=== PATIENT | female | born 1955 | race Caucasian/White ===

== ENCOUNTER 2017-10-19 14:10 | Inpatient (IN) | payer MEDICAID, OTHER ==
--- NOTE | 2017-10-19 16:03 | CP.PCM.HP ---
<James Meier - Last Filed: 10/19/17 15:59> History of Present Illness - History of Present Illness History of Present Illness: H&P for Dr. Baptiste This is a 62F with a PMH of [place] Syndrome and Dextrocardia, she presented today to the ED due to lower adominal pain and pelvic pain for the past 3 weeks. She reports that she has known that she has groin hernias for years however aside from beeing unsighly they have never caused her any issues however about three weeks ago the bulges became fixed and painful. She reports that during this time she has had no changes in bowel function, no blood per rectum no nausea or vomiting. In the ED the ED physician was able to rediuce the left sided hernia however he was unable to reduice the right sided hernia. She denies any fevers chill or chest pain at this time. She does however complay of left lower extremity numbness. PMH: [place] syndrome, dextrocardia, neuropathy PSH: Spinal surgery, Free Flap grafts ALL: NKDA Social: Denies Vices Present on Admission - Present on Admission Any Indicators Present on Admission: No Review of Systems - Review of Systems All systems: reviewed and no additional remarkable complaints except - Constitutional Constitutional: absent: Anorexia, Chills - EENT Eyes: absent: Blurred Vision, Change in Vision Ears: absent: Ear Discharge, Ear Pain - Cardiovascular Cardiovascular: absent: Chest Pain, Dyspnea - Respiratory Respiratory: absent: Dyspnea, Dyspnea on Exertion - Gastrointestinal Gastrointestinal: Abdominal Pain. absent: Bloating, Coffee Ground Emesis, Diarrhea, Melena, Nausea, Vomiting - Genitourinary Genitourinary: absent: Difficulty Urinating, Dysuria - Integumentary Integumentary: absent: Bleeding Lesions, New Lesions Past Patient History - Past Social History Smoking Status: Light Smoker < 10 Cigarettes Daily - CARDIAC Hx Cardiac Disorders: No Hx Hypertension: No - PULMONARY Hx Tuberculosis: No - NEUROLOGICAL HX Cerebrovascular Accident: No Hx Seizures: No - HEMATOLOGICAL/ONCOLOGICAL Hx Cancer: No Hx Human Immunodeficiency Virus (HIV): No - MUSCULOSKELETAL/RHEUMATOLOGICAL Other/Comment: laminectomy 2007 - GENITOURINARY/GYNECOLOGICAL Hx Sexually Transmitted Disorders: No - PSYCHIATRIC Hx Anxiety: Yes Hx Bipolar Disorder: Yes Hx Depression: Yes Hx Substance Use: No Meds Allergies/Adverse Reactions: Allergies Allergy/AdvReac Type Severity Reaction Status Date / Time No Known Allergies Allergy Unverified 10/19/17 14:18 Physical Exam - Constitutional Appears: Non-toxic, No Acute Distress - Head Exam Head Exam: ATRAUMATIC, NORMOCEPHALIC - Eye Exam Eye Exam: EOMI, Normal appearance - ENT Exam ENT Exam: Mucous Membranes Moist - Respiratory Exam Respiratory Exam: NORMAL BREATHING PATTERN - Cardiovascular Exam Cardiovascular Exam: +S1, +S2 - GI/Abdominal Exam GI & Abdominal Exam: Soft. absent: Distended, Firm, Guarding, Tenderness Additional comments: Bilateral Inguinal Hernias - Extremities Exam Extremities exam: Positive for: normal inspection - Neurological Exam Neurological exam: Alert, Oriented x3 - Psychiatric Exam Psychiatric exam: Normal Affect, Normal Mood - Skin Skin Exam: Dry, Intact Results - Vital Signs Recent Vital Signs: Last Vital Signs Temp 98.4 F 10/19/17 14:14 Pulse 97 H 10/19/17 14:14 Resp 20 10/19/17 14:14 BP 123/81 10/19/17 14:14 Pulse Ox 100 10/19/17 14:14 Assessment & Plan - Assessment and Plan (Free Text) Assessment: 62F with bilateral inguinal hernias right side incarcerated left reducible Plan: Admit to Dr. Baptiste's Service Regular Diet NPO tomorrow night Plan for OR Thursday for herniorraphy EKG, CXR, Labs Consult Dr. Kortney Mark for medical evaluation D/W Dr. Emile Meier PGY2 <Russ Baptiste - Last Filed: 10/21/17 20:03> Results - Vital Signs Recent Vital Signs: Last Vital Signs Temp 97.5 F L 10/21/17 15:30 Pulse 87 10/21/17 19:39 Resp 15 10/21/17 15:30 BP 135/92 H 10/21/17 15:30 Pulse Ox 99 10/21/17 15:30 - Labs Result Diagrams: 10/21/17 07:20 10/21/17 07:20 Labs: Laboratory Results - last 24 hr 10/20/17 10/21/17 10/21/17 21:43 05:07 07:20 WBC 7.1 RBC 4.27 Hgb 13.0 Hct 37.9 MCV 88.7 MCH 30.3 MCHC 34.2 RDW 13.5 Plt Count 265 MPV 8.4 Neut % (Auto) 75.5 H Lymph % (Auto) 15.1 L [place] % (Auto) 7.0 Eos % (Auto) 1.6 Baso % (Auto) 0.8 Neut # (Auto) 5.4 Lymph # (Auto) 1.1 [place] # (Auto) 0.5 Eos # (Auto) 0.1 Baso # (Auto) 0.1 Sodium Potassium Chloride Carbon Dioxide Anion Gap BUN Creatinine Est GFR ( Amer) Est GFR (Non-Af Amer) POC Glucose (mg/dL) 92 91 Random Glucose Calcium Total Bilirubin AST ALT Alkaline Phosphatase Total Protein Albumin Globulin Albumin/Globulin Ratio 10/21/17 10/21/17 10/21/17 07:20 07:20 16:14 WBC RBC Hgb Hct MCV MCH MCHC RDW Plt Count MPV Neut % (Auto) Lymph % (Auto) [place] % (Auto) Eos % (Auto) Baso % (Auto) Neut # (Auto) Lymph # (Auto) [place] # (Auto) Eos # (Auto) Baso # (Auto) Sodium 140 Potassium 3.8 Chloride 104 Carbon Dioxide 26 Anion Gap 14 BUN 8 Creatinine 0.6 L Est GFR ( Amer) > 60 Est GFR (Non-Af Amer) > 60 POC Glucose (mg/dL) 106 108 Random Glucose 112 H Calcium 9.5 Total Bilirubin 0.7 AST 35 ALT < 6 L D Alkaline Phosphatase 77 Total Protein 7.7 Albumin 4.0 Globulin 3.7 Albumin/Globulin Ratio 1.1 Attending/Attestation - Attestation I have personally seen and examined this patient.: Yes I have fully participated in the care of the patient.: Yes I have reviewed all pertinent clinical information: Yes Notes (Text): Pt was seen and examined at bedside Agree with above note and assessment Pt with Severe groin pain and irreducible inguinal hernia. Abdomen: Soft, NT, ND No clinical signs of intestinal obstruction. Labs and radiology reviewed Ass: B/L Inguinal hernia possible Femoral hernia Plan : CT scan of A/P Medical clearance EKG ,CXR CBC, BMP,PT/INR Plan d.w pt in detail Risk and benefit explained in detail.
--- NOTE | 2017-10-19 16:42 | C.PDOC ---
History Of Present Illness 62 y/o female, w/PMHx of bilingual hernia, presents to the ER complaining of bilateral inguinal hernia pain (L>R) which has been present for the past 1 year and became progressively worse over the past 1 week. Patient denies having nausea,vomiting, diarrhea, and urinary symptoms. Time Seen by Provider: 10/19/17 14:45 Chief Complaint (Nursing): Abdominal Pain History Per: Patient History/Exam Limitations: no limitations Onset/Duration Of Symptoms: Days Current Symptoms Are (Timing): Still Present Severity: Moderate Past Medical History Reviewed: Historical Data, Nursing Documentation, Vital Signs Vital Signs: Last Vital Signs Temp 98.4 F 10/19/17 14:14 Pulse 97 H 10/19/17 14:14 Resp 20 10/19/17 14:14 BP 123/81 10/19/17 14:14 Pulse Ox 100 10/19/17 16:48 - Medical History PMH: Anxiety, Bipolar Disorder, Depression Denies: Diabetes, Hepatitis, HIV, HTN, Seizures, Sexually Transmitted Disease Surgical History: Back Surgery (laminectomy 2006) Family History: States: No Known Family Hx - Social History Hx Tobacco Use: Yes Hx Alcohol Use: No Hx Substance Use: No - Immunization History Hx Tetanus Toxoid Vaccination: No Hx Influenza Vaccination: No Hx Pneumococcal Vaccination: No Review Of Systems Except As Marked, All Systems Reviewed And Found Negative. Constitutional: Negative for: Fever, Chills Gastrointestinal: Positive for: Abdominal Pain. Negative for: Nausea, Vomiting , Diarrhea Genitourinary: Negative for: Dysuria, Hematuria Physical Exam - Physical Exam Appears: Non-toxic, No Acute Distress Skin: Normal Color, Warm, Dry Head: Atraumatic, Normacephalic Eye(s): bilateral: Normal Inspection Nose: Normal Oral Mucosa: Moist Neck: Supple Chest: Symmetrical Cardiovascular: Rhythm Regular Respiratory: Normal Breath Sounds, No Rales, No Rhonchi, No Wheezing Gastrointestinal/Abdominal: Bowel Sounds ((+) bowel sounds), Soft, No Tenderness , No Guarding, No Rebound, Hernia (bilateral inguinal hernias) Neurological/Psych: Oriented x3, Normal Speech ED Course And Treatment - Laboratory Results Result Diagrams: 10/19/17 18:10 O2 Sat by Pulse Oximetry: 100 (RA) Pulse Ox Interpretation: Normal Medical Decision Making Medical Decision Making: Assessment: Bilateral Inguinal Hernias Plan: --Labs Updates: resident care supervisor evaluated patient.Case discussed with Dr. Baptiste, surgeon. Patient will admitted to medical surgical floor under the service of . Disposition Discussed With .: Russ Baptiste Doctor Will See Patient In The: Hospital Counseled Patient/Family Regarding: Studies Performed, Diagnosis - Disposition Disposition Time: 17:00 Condition: FAIR - Clinical Impression Clinical Impression: Hernia - Scribe Statement The provider has reviewed the documentation as recorded by the Scribe Jenna Nichols Provider Attestation: All medical record entries made by the Scribe were at my direction and personally dictated by me. I have reviewed the chart and agree that the record accurately reflects my personal performance of the history, physical exam, medical decision making, and the department course for this patient. I have also personally directed, reviewed, and agree with the discharge instructions and disposition.
[2017-10-19] MEDS: Dextrose 5%/0.9% NS 1,000 ML IV SCH (16:54)
[2017-10-19] MEDS ORDERED: Dextrose 5%/0.9% NS 1,000 ML IV ONE (16:54)
[2017-10-19 18:13] LABS: BASO # 0.1 K/uL (0.0-0.2); EOS # 0.2 K/uL (0.0-0.7); EOS % 2.7 % (0.0-4.0); LYMPH % 24.2 % (20.0-40.0); MEAN CELL VOLUME 90.6 fL (81.0-99.0); MEAN CORPUSCULAR HEMOGLOBIN 30.5 pg (27.0-31.0); MEAN CORPUSCULAR HGB CONC 33.7 g/dL (33.0-37.0); MEAN PLATELET VOLUME 8.6 fL (7.2-11.7); MONO # 0.6 K/uL (0.0-0.8); MONO % 7.2 % (0.0-10.0); NEUT # 5.2 K/uL (1.8-7.0); NEUT % 64.9 % (50.0-75.0); RBC 4.26 Mil/uL (3.80-5.20); RED CELL DISTRIBUTION WIDTH 13.9 % (11.5-14.5)
[2017-10-19 18:15] LABS: WHITE BLOOD COUNT 8.1 K/uL (4.8-10.8)
[2017-10-19 18:33] LABS: ALB/GLOB RATIO 1.1 (1.0-2.1); ALBUMIN 4.3 g/dL (3.5-5.0); ALT/SGPT 11 U/L (9-52); AST/SGOT 43 U/L (14-36); BLOOD UREA NITROGEN 16 mg/dL (7-17); CALCIUM 9.6 mg/dl (8.6-10.4); GFR AFRICAN-AMERICAN > 60; GFR NON-AFRICAN AMERICAN > 60
--- NOTE | 2017-10-19 18:35 | RAD ---
PROCEDURE: CHEST RADIOGRAPH, 1 VIEW HISTORY: preop COMPARISON: None. FINDINGS: LUNGS: Clear. PLEURA: No pneumothorax or pleural fluid seen. CARDIOVASCULAR: Normal. OSSEOUS STRUCTURES: Evidence of old healed posterior lateral left rib fractures likely based on appearance to be posttraumatic. VISUALIZED UPPER ABDOMEN: Normal. OTHER FINDINGS: None. IMPRESSION: No active disease.
[2017-10-20] MEDS: Dextrose 5%/0.9% NS 1,000 ML IV SCH ×3 (03:00→22:40)
[2017-10-20 06:44] LABS: BASO # 0.1 K/uL (0.0-0.2); BASO % 0.8 % (0.0-2.0); EOS # 0.3 K/uL (0.0-0.7); EOS % 4.2 % (0.0-4.0); HEMOGLOBIN 11.2 g/dL (11.0-16.0); LYMPH # 1.8 K/uL (1.0-4.3); LYMPH % 26.6 % (20.0-40.0); MEAN CELL VOLUME 90.4 fL (81.0-99.0); MEAN CORPUSCULAR HEMOGLOBIN 30.8 pg (27.0-31.0); MEAN CORPUSCULAR HGB CONC 34.1 g/dL (33.0-37.0); MEAN PLATELET VOLUME 8.7 fL (7.2-11.7); MONO # 0.6 K/uL (0.0-0.8); MONO % 8.5 % (0.0-10.0); NEUT % 59.9 % (50.0-75.0); RBC 3.62 Mil/uL (3.80-5.20); RED CELL DISTRIBUTION WIDTH 13.6 % (11.5-14.5); WHITE BLOOD COUNT 6.7 K/uL (4.8-10.8)
[2017-10-20 06:49] LABS: BLOOD UREA NITROGEN 17 mg/dL (7-17); CALCIUM 8.7 mg/dl (8.6-10.4); GFR AFRICAN-AMERICAN > 60; GFR NON-AFRICAN AMERICAN > 60; INR 1.1; PROTHROMBIN TIME 12.2 SECONDS (9.7-12.2)
--- NOTE | 2017-10-20 07:24 | CP.PCM.PN ---
<James Meier - Last Filed: 10/20/17 07:27> Subjective - Date & Time of Evaluation Date of Evaluation: 10/20/17 Time of Evaluation: 07:22 - Subjective Subjective: General Surgery Progress Note for Dr. Baptiste This 62F was seen and examined this Am at bedside no acute events overnight. She reports that she still has pain in her hernias bilaterally. She continues to floor grinder her bowels and tolerates diet. Denies any SOB or Chest pain. Objective - Vital Signs/Intake and Output Vital Signs (last 24 hours): Temp Pulse Resp BP Pulse Ox 98.4 F 75 20 122/71 95 10/20/17 00:00 10/20/17 00:00 10/20/17 00:00 10/20/17 00:00 10/20/17 00:00 Intake and Output: 10/20/17 10/20/17 06:59 18:59 Intake Total 550 Balance 550 - Medications Medications: Current Medications Dextrose/Sodium Chloride (Dextrose 5%/0.9% Ns 1000 Ml) 1,000 mls @ 100 mls/hr IV .Q10H SANDRA Last Admin: 10/20/17 03:00 Dose: 100 mls/hr - Labs Labs: 10/20/17 06:29 10/20/17 06:29 PT 12.2 SECONDS (9.7-12.2) 10/20/17 06:29 INR 1.1 10/20/17 06:29 APTT 29 SECONDS (21-34) 10/20/17 06:29 - Constitutional Appears: Non-toxic, No Acute Distress - Head Exam Head Exam: ATRAUMATIC, NORMOCEPHALIC - Eye Exam Eye Exam: EOMI, Normal appearance - ENT Exam ENT Exam: Mucous Membranes Moist - Respiratory Exam Respiratory Exam: NORMAL BREATHING PATTERN - Cardiovascular Exam Cardiovascular Exam: +S1, +S2 - GI/Abdominal Exam GI & Abdominal Exam: Soft. absent: Guarding, Rigid, Tenderness - Extremities Exam Extremities Exam: Normal Inspection - Neurological Exam Neurological Exam: Alert, Awake - Psychiatric Exam Psychiatric exam: Normal Affect, Normal Mood - Skin Skin Exam: Dry, Intact Assessment and Plan - Assessment and Plan (Free Text) Assessment: 62F with Bilateral inguinal hernias R incarcerated L reducible NPO after midnight OR for inguinal hernia repair tomorrow Continue to ambulate F/U medicine consult Further recommendations per Dr. Emile Meier PGY2 <Russ Baptiste - Last Filed: 10/21/17 20:10> Objective - Vital Signs/Intake and Output Vital Signs (last 24 hours): Temp Pulse Resp BP Pulse Ox 97.5 F L 87 15 135/92 H 99 10/21/17 15:30 10/21/17 19:39 10/21/17 15:30 10/21/17 15:30 10/21/17 15:30 Intake and Output: 10/21/17 10/22/17 18:59 06:59 Intake Total 3280 Output Total 800 Balance 2480 - Medications Medications: Current Medications Acetaminophen (Tylenol 650 Mg Supp) 650 mg [place] Q4 PRN PRN Reason: Fever >100.4 F Dextrose/Sodium Chloride (Dextrose 5%/0.9% Ns 1000 Ml) 1,000 mls @ 100 mls/hr IV .Q10H SANDRA Last Admin: 10/21/17 08:38 Dose: Not Given Morphine Sulfate (Morphine) 2 mg IVP Q4 PRN PRN Reason: Pain, SEVERE(8-10) Last Admin: 10/21/17 18:09 Dose: 2 mg Oxycodone/Acetaminophen (Percocet 5/325 Mg Tab) 2 tab PO Q4H PRN PRN Reason: Pain, moderate (4-7) Stop: 10/24/17 16:48 - Labs Labs: 10/21/17 07:20 10/21/17 07:20 PT 12.2 SECONDS (9.7-12.2) 10/20/17 06:29 INR 1.1 10/20/17 06:29 APTT 29 SECONDS (21-34) 10/20/17 06:29 Attending/Attestation - Attestation I have personally seen and examined this patient.: Yes I have fully participated in the care of the patient.: Yes I have reviewed all pertinent clinical information, including history, physical exam and plan: Yes Notes (Text): Pt was seen and examined at bedside Agree with above note and assessment Pt with B/L Inguinal hernia possible Femoral hernia Medical consult appreciated Awaiting CT scan Possible OR for Hernia repair Consent NPO, IVF Plan d.w pt in detail Risk and benefit explained in detail.
--- NOTE | 2017-10-20 12:36 | CARD ---
APPROVED REPORT EKG Measurement Heart [id number] <Conclusion> Sinus rhythm with sinus arrhythmia with short HI Otherwise normal ECG
[2017-10-20] MEDS ORDERED: Iodixanol 320 MG/ML 100 ML BOTTLE IV ONE (21:03)
--- NOTE | 2017-10-20 22:40 | CT ---
EXAM: CT Abdomen and Pelvis With Intravenous Contrast EXAM DATE/TIME: 10/20/2017 6:48 PM CLINICAL HISTORY: 62 years old, female; Condition or disease; Hernia; Additional info: Inguinal hernia TECHNIQUE: Axial computed tomography images of the abdomen and pelvis with intravenous contrast. All CT scans at this facility use one or more dose reduction techniques, viz.: automated exposure control; ma/kV adjustment per patient size (including targeted exams where dose is matched to indication; i.e. head); or iterative reconstruction technique. Coronal and sagittal reformatted images were created and reviewed. CONTRAST: 100 mL of visipaque 32o administered intravenously. COMPARISON: No relevant prior studies available. FINDINGS: LIMITATIONS: Exam is limited by a generalized absence of intraabdominal and intrapelvic fat. LUNG BASES: No significant abnormality seen. ABDOMEN: LIVER: No acute abnormality of the liver identified. GALLBLADDER AND BILE DUCTS: No CT evidence of acute cholecystitis. No evidence of significant biliary ductal dilatation. PANCREAS: No CT evidence of acute pancreatitis. SPLEEN: No acute abnormality of the spleen identified. ADRENALS: No acute abnormality of the adrenal glands identified. KIDNEYS AND URETERS: Tiny, bilateral nonobstructing renal stones Multiple low density lesions in the kidneys bilaterally, most tiny in size. These most likely represent multiple, bilateral renal cysts. The largest, located in the left kidney, measures 1 cm. No acute abnormality of the kidneys identified. STOMACH AND BOWEL: Bowel is suboptimally evaluated secondary to a generalized absence of intra-abdominal fat. Allowing for this, there is no definite acute abnormality of the bowel seen. No evidence of bowel obstruction. No acute abnormality of the stomach or duodenum identified. PELVIS: APPENDIX: Normal appendix is probably seen, images 35-47 of series 601.No significant pericecal inflammatory changes are noted to suggest appendicitis. Recommend clinical correlation. BLADDER: No acute abnormality of the bladder identified. REPRODUCTIVE:No acute abnormality of the reproductive organs is seen. No acute abnormality of the uterus identified. No evidence of large adnexal masses. ABDOMEN and PELVIS: INTRAPERITONEAL SPACE: No evidence of free intraperitoneal air or fluid. BONES/JOINTS: Bony structures appear demineralized. SOFT TISSUES: Well-defined, round collections of fluid in the groin soft tissues bilaterally, symmetric in size, both measuring approximately 2.8 x 2.5 cm. Findings most likely represent bilateral inguinal hernias, containing fluid. No CT findings to suggest hernia incarceration, although clinical exam is more sensitive for detection of hernia incarceration. No evidence of bowel herniation. VASCULATURE: No evidence of abdominal aortic aneurysm. No evidence of periaortic hemorrhage. LYMPH NODES: No evidence of diffuse lymphadenopathy. IMPRESSION: - No definite significant acute process. - Well-defined, approximately 3 cm round collections of fluid in the groin soft tissues bilaterally, symmetric in size. Findings most likely represent bilateral inguinal hernias, containing fluid. No evidence of bowel herniation. - See above for remaining findings.
--- NOTE | 2017-10-20 23:49 | CP.PCM.CON ---
Past Patient History - Past Medical History & Family History Past Medical History?: Yes - Past Social History Smoking Status: Former Smoker - CARDIAC Hx Cardiac Disorders: No Hx Hypertension: No - PULMONARY Hx Respiratory Disorders: No Hx Tuberculosis: No - NEUROLOGICAL Hx Neurological Disorder: No Hx Seizures: No - HEENT Hx HEENT Problems: No - RENAL Hx Chronic Kidney Disease: No - ENDOCRINE/METABOLIC Hx Endocrine Disorders: No - HEMATOLOGICAL/ONCOLOGICAL Hx Blood Disorders: No Hx Human Immunodeficiency Virus (HIV): No - INTEGUMENTARY Hx Dermatological Problems: No - MUSCULOSKELETAL/RHEUMATOLOGICAL Hx Musculoskeletal Disorders: Yes Hx Falls: No Other/Comment: laminectomy 2007 - GASTROINTESTINAL Hx Gastrointestinal Disorders: Yes Other/Comment: inguinal hernias - GENITOURINARY/GYNECOLOGICAL Hx Genitourinary Disorders: No Hx Sexually Transmitted Disorders: No - PSYCHIATRIC Hx Psychophysiologic Disorder: Yes Hx Anxiety: Yes Hx Bipolar Disorder: Yes Hx Depression: Yes Hx Substance Use: No - SURGICAL HISTORY Hx Surgeries: Yes Other/Comment: laminectomy - ANESTHESIA Hx Anesthesia: Yes Hx Anesthesia Reactions: No Hx Malignant Hyperthermia: No Meds Allergies/Adverse Reactions: Allergies Allergy/AdvReac Type Severity Reaction Status Date / Time No Known Allergies Allergy Unverified 10/19/17 14:18 - Medications Medications: Current Medications Dextrose/Sodium Chloride (Dextrose 5%/0.9% Ns 1000 Ml) 1,000 mls @ 100 mls/hr IV .Q10H SANDRA Last Admin: 10/20/17 22:40 Dose: Not Given Results - Vital Signs Recent Vital Signs: Last Vital Signs Temp 98.2 F 10/20/17 16:00 Pulse 76 10/20/17 16:00 Resp 20 10/20/17 16:00 BP 135/87 10/20/17 16:00 Pulse Ox 100 10/20/17 16:00 - Labs Result Diagrams: 10/20/17 06:29 10/20/17 06:29 Labs: Laboratory Results - last 24 hr 10/20/17 10/20/17 10/20/17 02:20 06:29 06:29 WBC 6.7 RBC 3.62 L Hgb 11.2 Hct 32.7 L MCV 90.4 MCH 30.8 MCHC 34.1 RDW 13.6 Plt Count 208 MPV 8.7 Neut % (Auto) 59.9 Lymph % (Auto) 26.6 [place] % (Auto) 8.5 Eos % (Auto) 4.2 H Baso % (Auto) 0.8 Neut # (Auto) 4.0 Lymph # (Auto) 1.8 [place] # (Auto) 0.6 Eos # (Auto) 0.3 Baso # (Auto) 0.1 PT 12.2 INR 1.1 APTT 29 Sodium Potassium Chloride Carbon Dioxide Anion Gap BUN Creatinine Est GFR ( Amer) Est GFR (Non-Af Amer) POC Glucose (mg/dL) 107 Random Glucose Calcium 10/20/17 10/20/17 10/20/17 06:29 07:08 10:56 WBC RBC Hgb Hct MCV MCH MCHC RDW Plt Count MPV Neut % (Auto) Lymph % (Auto) [place] % (Auto) Eos % (Auto) Baso % (Auto) Neut # (Auto) Lymph # (Auto) [place] # (Auto) Eos # (Auto) Baso # (Auto) PT INR APTT Sodium 138 Potassium 4.1 Chloride 103 Carbon Dioxide 29 Anion Gap 11 BUN 17 Creatinine 0.9 Est GFR ( Amer) > 60 Est GFR (Non-Af Amer) > 60 POC Glucose (mg/dL) 80 99 Random Glucose 99 Calcium 8.7 10/20/17 10/20/17 16:20 21:43 WBC RBC Hgb Hct MCV MCH MCHC RDW Plt Count MPV Neut % (Auto) Lymph % (Auto) [place] % (Auto) Eos % (Auto) Baso % (Auto) Neut # (Auto) Lymph # (Auto) [place] # (Auto) Eos # (Auto) Baso # (Auto) PT INR APTT Sodium Potassium Chloride Carbon Dioxide Anion Gap BUN Creatinine Est GFR ( Amer) Est GFR (Non-Af Amer) POC Glucose (mg/dL) 101 92 Random Glucose Calcium
[2017-10-21] MEDS: Dextrose 5%/0.9% NS 1,000 ML IV SCH ×3 (00:15→22:15)
[2017-10-21] MEDS: Morphine 4 MG/ML VIAL IVP PRN ×2 (01:40→06:10)
[2017-10-21 07:34] LABS: BASO # 0.1 K/uL (0.0-0.2); BASO % 0.8 % (0.0-2.0); EOS # 0.1 K/uL (0.0-0.7); EOS % 1.6 % (0.0-4.0); LYMPH # 1.1 K/uL (1.0-4.3); LYMPH % 15.1 % (20.0-40.0); MEAN CELL VOLUME 88.7 fL (81.0-99.0); MEAN CORPUSCULAR HEMOGLOBIN 30.3 pg (27.0-31.0); MEAN CORPUSCULAR HGB CONC 34.2 g/dL (33.0-37.0); MEAN PLATELET VOLUME 8.4 fL (7.2-11.7); MONO # 0.5 K/uL (0.0-0.8); NEUT # 5.4 K/uL (1.8-7.0); NEUT % 75.5 % (50.0-75.0); RBC 4.27 Mil/uL (3.80-5.20); RED CELL DISTRIBUTION WIDTH 13.5 % (11.5-14.5); WHITE BLOOD COUNT 7.1 K/uL (4.8-10.8)
[2017-10-21 07:48] LABS: ALB/GLOB RATIO 1.1 (1.0-2.1); ALT/SGPT < 6 U/L (9-52); AST/SGOT 35 U/L (14-36); BLOOD UREA NITROGEN 8 mg/dL (7-17); CALCIUM 9.5 mg/dl (8.6-10.4); GFR AFRICAN-AMERICAN > 60; GFR NON-AFRICAN AMERICAN > 60
[2017-10-21] MEDS ORDERED: Lidocaine/Epinephrine 1% 1:100000 10 ML IJ ONE (08:13)
[2017-10-21] MEDS ORDERED: Bupivacaine HCl 0.25% PF (30 ml) Inj ONE ×2 (08:13→08:52)
[2017-10-21] MEDS ORDERED: ceFAZolin IV 2 gm in Dextrose 2 GM/50 ML BAG IVPB ONE (08:13)
[2017-10-21] MEDS ORDERED: Midazolam 2 MG/2 ML VIAL ONE (09:00)
[2017-10-21] MEDS ORDERED: Propofol 10 mg/ml Inj (20 ML) ONE (09:00)
[2017-10-21] MEDS ORDERED: Neostigmine Methylsulfate 3mg/3ml Syringe IV ONE (12:19)
--- NOTE | 2017-10-21 13:32 | PCM.SURG1 ---
Surgeon's Initial Post Op Note - Surgeon's Notes Surgeon: Aurora Baptiste MD Mortgage Clerk: OSCAR Moran Type of Anesthesia: General Endo Pre-Operative Diagnosis: B/L Inguinal hernia Possible femoral hernia Operative Findings: B/L Bilateral Femoral Hernia. Left Inguinal hernia. Plevic collection, Hemorrhegic Post-Operative Diagnosis: B/L Bilateral Femoral Hernia. Left Direct Inguinal hernia. Plevic collection, Hemorrhegic Operation Performed: Robotic B/L Bilateral Femoral Hernia. Robotic Left Inguinal hernia. Robotic drainage of plevic collection, Hemorrhegic Specimen/Specimens Removed: Left fermoral hernial sac. Right femoral hernia sac Estimated Blood Loss: EBL {In ML}: 10 Blood Products Given: N/A Drains Used: No Drains Post-Op Condition: Good Date of Surgery/Procedure: 10/21/17 Time of Surgery/Procedure: 13:33
[2017-10-21] MEDS: HYDROmorphone 0.5 mg/0.5 ml ISec IVP PRN ×4 (13:35→13:45)
[2017-10-21] MEDS ORDERED: Oxycodone/Acetaminophen 5/325 mg Tab PO PRN (16:47)
[2017-10-21] MEDS ORDERED: Morphine 4 MG/ML VIAL IVP PRN (17:00)
--- NOTE | 2017-10-21 20:08 | CP.PCM.PN ---
Subjective - Date & Time of Evaluation Date of Evaluation: 10/21/17 Time of Evaluation: 08:00 - Subjective Subjective: clinically same Objective - Vital Signs/Intake and Output Vital Signs (last 24 hours): Temp Pulse Resp BP Pulse Ox 97.5 F L 87 15 135/92 H 99 10/21/17 15:30 10/21/17 19:39 10/21/17 15:30 10/21/17 15:30 10/21/17 15:30 Intake and Output: 10/21/17 10/22/17 18:59 06:59 Intake Total 3280 Output Total 800 Balance 2480 - Medications Medications: Current Medications Acetaminophen (Tylenol 650 Mg Supp) 650 mg [place] Q4 PRN PRN Reason: Fever >100.4 F Dextrose/Sodium Chloride (Dextrose 5%/0.9% Ns 1000 Ml) 1,000 mls @ 100 mls/hr IV .Q10H SANDRA Last Admin: 10/21/17 08:38 Dose: Not Given Morphine Sulfate (Morphine) 2 mg IVP Q4 PRN PRN Reason: Pain, SEVERE(8-10) Last Admin: 10/21/17 18:09 Dose: 2 mg Oxycodone/Acetaminophen (Percocet 5/325 Mg Tab) 2 tab PO Q4H PRN PRN Reason: Pain, moderate (4-7) Stop: 10/24/17 16:48 - Labs Labs: 10/21/17 07:20 10/21/17 07:20 PT 12.2 SECONDS (9.7-12.2) 10/20/17 06:29 INR 1.1 10/20/17 06:29 APTT 29 SECONDS (21-34) 10/20/17 06:29 - Constitutional Appears: Well - Head Exam Head Exam: ATRAUMATIC, NORMAL INSPECTION, NORMOCEPHALIC - Eye Exam Eye Exam: EOMI, Normal appearance, PERRL Pupil Exam: NORMAL ACCOMODATION, PERRL - ENT Exam ENT Exam: Mucous Membranes Moist, Normal Exam - Neck Exam Neck Exam: Full ROM, Normal Inspection. absent: Lymphadenopathy - Respiratory Exam Respiratory Exam: Decreased Breath Sounds - Cardiovascular Exam Cardiovascular Exam: REGULAR RHYTHM, +S1, +S2 - GI/Abdominal Exam GI & Abdominal Exam: Soft, Diminished Bowel Sounds - Rectal Exam Rectal Exam: Deferred
[2017-10-22 00:24] VITALS: RESP 20
--- NOTE | 2017-10-22 03:44 | OP ---
PROCEDURE DATE: 10/21/2017 PREOPERATIVE DIAGNOSIS: Bilateral inguinal hernia, possible femoral hernia. POSTOPERATIVE DIAGNOSES: 1. Bilateral inguinal hernia. 2. Left direct inguinal hernia. 3. Hemorrhagic pelvic collection. PROCEDURES DONE: 1. Robotic bilateral femoral hernia repair with mesh. 2. Robotic left inguinal hernia repair with mesh. 3. Robotic drainage of pelvic collection. 4. Laparoscopic bilateral TAP block placement. SURGEON: Russ Baptiste MD CLINICAL DOCUMENTATION SPECIALIST: SOL Moran. ANESTHESIA: General endotracheal tube anesthesia. ESTIMATED BLOOD LOSS: Around 10 mL. DRAINS: None. PATHOLOGY: Both the femoral hernial was sent for the pathology. COMPLICATIONS: None. INTRAOPERATIVE FINDINGS: The patient had bilateral femoral hernia and the patient also had a left direct inguinal hernia, and the patient had large amount of hemorrhagic pelvic fluid collection that was drained and suction irrigation of the pelvic area was done. DESCRIPTION OF THE PROCEDURE: On intraoperative steps, this is a 62-year-old female who was diagnosed with bilateral inguinal hernia and possible femoral hernia, and the patient was consented for the robotic bilateral inguinal hernia repair with mesh, brought to the OR, placed supine on the operating table. After induction of anesthesia, the abdomen was prepped and draped in the usual sterile fashion. The supraumbilical transverse incision was made after incising skin, subcutaneous tissue, and the fascia. A robotic camera port was placed, pneumo was created. The patient had hepatomegaly as well as hemorrhagic fluid collection in the pelvis. Another 3.8-mm port was placed in upper abdomen and robot was brought in. Camera arm as well as arm 1 and arm 2 were docked. The first hemorrhagic fluid collection was drained and suction irrigation of the pelvis was done. Now, the patient was found to have left direct inguinal hernia as well as the bilateral femoral hernia and the dissection of the peritoneum was done from the left ASIS up to the right ASIS and the dissection was carried down in the midline up to the space of Retzius, and laterally, the parietal peritoneum was dissected free from the lateral abdominal wall and dissection was continued to identify the round ligament, and an inferior dissection was done up to the pelvic brim. The femoral hernial sac was reduced on the right side. Now, the similar dissection was done on the left side. The peritoneum was dissected from the lateral abdominal wall and the femoral hernial sac was reduced. The patient also had direct inguinal hernia and that part of the sac was also reduced, and the dissection was continued inferiorly up to the pelvic brim. After that, the bilateral mesh was placed, the right and left side mesh. After proper implantation of the mesh, the peritoneum was sutured with a 2-0 Vicryl and 2-0 PDS continuous V-Loc suture and the defect in the peritoneum was sutured with 0 Vicryl interrupted sutures, and after that, the bilateral TAP block was given. During the TAP block, the 30:30 mL of Marcaine was injected in the transverse abdominis muscle plain, and after the TAP block, all the port was taken out under vision, pneumo was deflated. The umbilical port site was closed in 2 layers, the fascia with 0 Vicryl and skin with a 4-0 Monocryl, and dry sterile dressing was applied. The patient tolerated the procedure well. Count of the instruments and gauze was correct. There was no apparent complication. The patient was extubated in the OR and sent to the postanesthesia care unit in stable condition Russ Baptiste MD
[2017-10-22] MEDS: Dextrose 5%/0.9% NS 1,000 ML IV SCH ×2 (04:15→14:49)
[2017-10-22 07:22] LABS: BASO # 0.1 K/uL (0.0-0.2); BASO % 0.6 % (0.0-2.0); EOS # 0.1 K/uL (0.0-0.7); EOS % 1.3 % (0.0-4.0); HEMOGLOBIN 13.4 g/dL (11.0-16.0); LYMPH # 1.6 K/uL (1.0-4.3); LYMPH % 16.5 % (20.0-40.0); MEAN CELL VOLUME 89.9 fL (81.0-99.0); MEAN CORPUSCULAR HEMOGLOBIN 30.8 pg (27.0-31.0); MEAN CORPUSCULAR HGB CONC 34.3 g/dL (33.0-37.0); MEAN PLATELET VOLUME 8.5 fL (7.2-11.7); MONO # 0.5 K/uL (0.0-0.8); MONO % 5.1 % (0.0-10.0); NEUT # 7.3 K/uL (1.8-7.0); NEUT % 76.5 % (50.0-75.0); RBC 4.36 Mil/uL (3.80-5.20); RED CELL DISTRIBUTION WIDTH 13.9 % (11.5-14.5); WHITE BLOOD COUNT 9.5 K/uL (4.8-10.8)
[2017-10-22 07:39] LABS: ALBUMIN 3.5 g/dL (3.5-5.0); ALT/SGPT 19 U/L (9-52); AST/SGOT 30 U/L (14-36); BLOOD UREA NITROGEN 11 mg/dL (7-17); GFR AFRICAN-AMERICAN > 60; GFR NON-AFRICAN AMERICAN > 60
[2017-10-22 07:58] VITALS: O2SAT 99
--- NOTE | 2017-10-22 08:19 | CP.PCM.DIS ---
Provider - Provider Date of Admission: 10/19/17 16:32 Attending physician: Russ Baptiste MD Time Spent in preparation of Discharge (in minutes): 45 Hospital Course - Lab Results Lab Results: Most Recent Lab Values WBC 9.5 K/uL (4.8-10.8) 10/22/17 07:13 RBC 4.36 Mil/uL (3.80-5.20) 10/22/17 07:13 Hgb 13.4 g/dL (11.0-16.0) 10/22/17 07:13 Hct 39.2 % (34.0-47.0) 10/22/17 07:13 MCV 89.9 fL (81.0-99.0) 10/22/17 07:13 MCH 30.8 pg (27.0-31.0) 10/22/17 07:13 MCHC 34.3 g/dL (33.0-37.0) 10/22/17 07:13 RDW 13.9 % (11.5-14.5) 10/22/17 07:13 Plt Count 240 K/uL (130-400) 10/22/17 07:13 MPV 8.5 fL (7.2-11.7) 10/22/17 07:13 Neut % (Auto) 76.5 % (50.0-75.0) H 10/22/17 07:13 Lymph % (Auto) 16.5 % (20.0-40.0) L 10/22/17 07:13 [place] % (Auto) 5.1 % (0.0-10.0) 10/22/17 07:13 Eos % (Auto) 1.3 % (0.0-4.0) 10/22/17 07:13 Baso % (Auto) 0.6 % (0.0-2.0) 10/22/17 07:13 Neut # (Auto) 7.3 K/uL (1.8-7.0) H 10/22/17 07:13 Lymph # (Auto) 1.6 K/uL (1.0-4.3) 10/22/17 07:13 [place] # (Auto) 0.5 K/uL (0.0-0.8) 10/22/17 07:13 Eos # (Auto) 0.1 K/uL (0.0-0.7) 10/22/17 07:13 Baso # (Auto) 0.1 K/uL (0.0-0.2) 10/22/17 07:13 PT 12.2 SECONDS (9.7-12.2) 10/20/17 06:29 INR 1.1 10/20/17 06:29 APTT 29 SECONDS (21-34) 10/20/17 06:29 Sodium 140 mmol/L (132-148) 10/22/17 07:13 Potassium 3.8 mmol/L (3.6-5.2) 10/22/17 07:13 Chloride 106 mmol/L (98-107) 10/22/17 07:13 Carbon Dioxide 25 mmol/L (22-30) 10/22/17 07:13 Anion Gap 13 (10-20) 10/22/17 07:13 BUN 11 mg/dL (7-17) 10/22/17 07:13 Creatinine 0.8 mg/dL (0.7-1.2) 10/22/17 07:13 Est GFR ( Amer) > 60 10/22/17 07:13 Est GFR (Non-Af Amer) > 60 10/22/17 07:13 POC Glucose (mg/dL) 126 mg/dL (65-110) H 10/22/17 07:14 Random Glucose 130 mg/dL (65-105) H 10/22/17 07:13 Calcium 9.0 mg/dl (8.6-10.4) 10/22/17 07:13 Total Bilirubin 1.0 mg/dL (0.2-1.3) 10/22/17 07:13 AST 30 U/L (14-36) 10/22/17 07:13 ALT 19 U/L (9-52) 10/22/17 07:13 Alkaline Phosphatase 70 U/L (38-126) 10/22/17 07:13 Total Protein 6.8 g/dL (6.3-8.3) 10/22/17 07:13 Albumin 3.5 g/dL (3.5-5.0) 10/22/17 07:13 Globulin 3.3 gm/dL (2.2-3.9) 10/22/17 07:13 Albumin/Globulin Ratio 1.0 (1.0-2.1) 10/22/17 07:13 - Hospital Course Hospital Course: Pt came with bl inguinal hernia pain. Underwent surgery . Tolerated it well. Pt stayed for pain control. + ambulated. + void. Inguinal pain improved. follow up at Dr. baptiste's office in 1-2 weeks. Ok to shower tomorrow. Takdressings off. Keep white strips on. No heavy lifting for 1 month Discharge Exam - Head Exam Head Exam: ATRAUMATIC, NORMAL INSPECTION, NORMOCEPHALIC - Eye Exam Eye Exam: EOMI, Normal appearance, PERRL Pupil Exam: NORMAL ACCOMODATION, PERRL - ENT Exam ENT Exam: Mucous Membranes Moist - Respiratory Exam Respiratory Exam: NORMAL BREATHING PATTERN, UNREMARKABLE - Cardiovascular Exam Cardiovascular Exam: REGULAR RHYTHM - GI/Abdominal Exam GI & Abdominal Exam: Normal Bowel Sounds. absent: Distended, Firm, Guarding, Hernia Additional comments: dressing C/D/I - Neurological Exam Neurological exam: Alert, CN II-XII Intact, Normal Gait, Oriented x3, Reflexes Normal - Psychiatric Exam Psychiatric exam: Normal Affect, Normal Mood - Skin Skin Exam: Dry, Intact, Normal Color, Warm Discharge Plan - Discharge Medications Prescriptions: Docusate Sodium [Colace] 100 mg PO DAILY #5 capsule oxyCODONE/Acetaminophen [Percocet 5/325 mg Tab] 2 tab PO Q4H PRN #14 tab PRN Reason: Pain, Moderate (4-7) - Follow Up Plan Condition: FAIR Disposition: HOME/ ROUTINE Instructions: Laparoscopic Herniorrhaphy (DC) Additional Instructions: follow up at Dr. baptiste's office in 1-2 weeks. Ok to shower tomorrow. Takdressings off. Keep white strips on. No heavy lifting for 1 month Referrals: Russ Baptiste MD [Staff Provider] -
[2017-10-22] MEDS ORDERED: HYDROmorphone 0.5 mg/0.5 ml ISec IM PRN (08:45)
--- NOTE | 2017-10-22 12:20 | CP.PCM.PN ---
Subjective - Date & Time of Evaluation Date of Evaluation: 10/22/17 Time of Evaluation: 12:00 - Subjective Subjective: Progress note. Attending: Dr. Mark Pt seen and examined at bedside. No acute distress. No events overnight. Pt likely dc today. Pt having some abdominal pain. No fevers, chills, vomiting, diarrhea. Objective - Vital Signs/Intake and Output Vital Signs (last 24 hours): Temp Pulse Resp BP Pulse Ox 98.9 F 82 20 135/87 99 10/22/17 07:55 10/22/17 07:55 10/22/17 07:55 10/22/17 07:55 10/22/17 07:55 Intake and Output: 10/22/17 10/22/17 06:59 18:59 Intake Total 1100 Balance 1100 - Medications Medications: Current Medications Acetaminophen (Tylenol 650 Mg Supp) 650 mg DC Q4 PRN PRN Reason: Fever >100.4 F Hydromorphone HCl (Dilaudid) 1 mg IM Q4H PRN PRN Reason: Pain, severe (8-10) Last Admin: 10/22/17 12:10 Dose: 1 mg Dextrose/Sodium Chloride (Dextrose 5%/0.9% Ns 1000 Ml) 1,000 mls @ 100 mls/hr IV .Q10H SANDRA Last Admin: 10/22/17 04:15 Dose: 100 mls/hr Oxycodone/Acetaminophen (Percocet 5/325 Mg Tab) 2 tab PO Q4H PRN PRN Reason: Pain, moderate (4-7) Stop: 10/24/17 16:48 Last Admin: 10/22/17 02:10 Dose: 2 tab - Labs Labs: 10/22/17 07:13 10/22/17 07:13 PT 12.2 SECONDS (9.7-12.2) 10/20/17 06:29 INR 1.1 10/20/17 06:29 APTT 29 SECONDS (21-34) 10/20/17 06:29 - Constitutional Appears: Non-toxic, No Acute Distress - Head Exam Head Exam: ATRAUMATIC, NORMAL INSPECTION, NORMOCEPHALIC - Eye Exam Eye Exam: EOMI - ENT Exam ENT Exam: Mucous Membranes Moist - Neck Exam Neck Exam: Full ROM, Normal Inspection - Respiratory Exam Respiratory Exam: NORMAL BREATHING PATTERN. absent: Respiratory Distress - Cardiovascular Exam Cardiovascular Exam: REGULAR RHYTHM, +S1, +S2 - GI/Abdominal Exam GI & Abdominal Exam: Soft, Normal Bowel Sounds. absent: Tenderness Additional comments: dressing clean, dry, intact - Extremities Exam Extremities Exam: Full ROM, Normal Inspection - Neurological Exam Neurological Exam: Alert, Awake, Oriented x3 - Psychiatric Exam Psychiatric exam: Normal Affect, Normal Mood - Skin Skin Exam: Dry, Intact, Normal Color, Warm Assessment and Plan - Assessment and Plan (Free Text) Assessment: This is a 62 yo female, of [place] descent, with 1. Inguinal hernia -patient is post op -continue incentive spirometry. -tylenol -D5 NS 100 cc/hr -morphine 2 mg IV q 4 hrs prn -percocet 5/325 prn pain -general surgery consult. Dr. Baptiste. recs appreciated. 2. GI/DVT ppx -scds -protonix daily discussed with Dr. Mark.
[2017-10-22] MEDS ORDERED: HYDROmorphone 1 mg/ml ISec IM PRN (14:30)
[2017-10-22 15:39] VITALS: BP 132/90; PULSE 85; TEMP 98.2
== END 2017-10-22 16:20 | disposition home or self-care (01) | DRG 161 ==
LOC: C.ER 14:10 → C.9E 16:32 → C.3T 19:30
PROVIDERS: ADMIT Surgery Surgical Critical Care; ATTEND Surgery Surgical Critical Care
PROC: 0YU64JZ Supplement Left Inguinal Region with Synthetic Substitute, Percutaneous Endoscopic Approach (ICD-10-PCS; 2017-10-21)
PROC: 0W9J4ZZ Drainage of Pelvic Cavity, Percutaneous Endoscopic Approach (ICD-10-PCS; 2017-10-21)
PROC: 3E0T3BZ Introduction of Anesthetic Agent into Peripheral Nerves and Plexi, Percutaneous Approach (ICD-10-PCS; 2017-10-21)
PROC: 0YUE4JZ Supplement Bilateral Femoral Region with Synthetic Substitute, Percutaneous Endoscopic Approach (ICD-10-PCS; principal; 2017-10-21 12:30)
DX: K41.20 Bilateral femoral hernia, without obstruction or gangrene, not specified as recurrent (principal); K40.90 Unilateral inguinal hernia, without obstruction or gangrene, not specified as recurrent; R18.8 Other ascites; F31.9 Bipolar disorder, unspecified; F17.210 Nicotine dependence, cigarettes, uncomplicated; Q24.0 Dextrocardia; Q79.8 Other congenital malformations of musculoskeletal system; Z87.891 Personal history of nicotine dependence